=== PATIENT | female | born 1930 | race Caucasian/White ===

== ENCOUNTER → 2016-12-05 | Outpatient (CLI) | payer OTHER ==
[~2016-12-05] MED LIST: AMLO-511 PO; ASCO500T20 PO; BENA40TA67 PO; ENOX40DI9 SQ; EZET1TAB3 PO; LEVO500 PO; METO-323 PO; MULT1TAB70 PO; VANC1VIA IV
== END | disposition home or self-care (01) ==
LOC: RADPV 10:09
PROVIDERS: ATTEND Internal Medicine Cardiovascular Disease
DX: I08.3 Combined rheumatic disorders of mitral, aortic and tricuspid valves (principal)
CPT/HCPCS: 93306